=== PATIENT | male | born 1990 | race Two or more races ===

== ENCOUNTER 2020-04-13 15:49 | Emergency (ER) | payer SELFPAY ==
--- NOTE | 2020-04-13 15:54 | NUR ---
pt not in waiting room
== END 2020-04-13 17:17 | disposition left against medical advice (07) ==
LOC: ER 15:56
DX: M25.549 Pain in joints of unspecified hand (principal); Z53.21 Procedure and treatment not carried out due to patient leaving prior to being seen by health care provider